=== PATIENT | female | born 1995 | race Caucasian/White ===

== ENCOUNTER → 2021-08-27 | Outpatient (CLI) | payer OTHER ==
[~2021-08-27] MED LIST: CRYSELLE1 TAB; SYNTHROID75 MCG; ZITHROMAX500 MG; ZYRTEC10 M3
== END | disposition home or self-care (01) ==
LOC: MRI 11:34
PROVIDERS: ATTEND Orthopaedic Surgery
DX: M25.462 Effusion, left knee (principal); M25.562 Pain in left knee; M25.561 Pain in right knee; M24.811 Other specific joint derangements of right shoulder, not elsewhere classified; M24.812 Other specific joint derangements of left shoulder, not elsewhere classified
CPT/HCPCS: 73721

== ENCOUNTER 2022-06-20 17:47 | Emergency (ER) | payer OTHER ==
[~2022-06-20] VITALS: Ht 160 cm; Wt 125.2 kg
[2022-06-20] MEDS ORDERED: PANADOL (19:31)
== END 2022-06-20 22:39 | disposition home or self-care (01) ==
LOC: ER 17:47
DX: S69.91XA Unspecified injury of right wrist, hand and finger(s), initial encounter (principal); W22.8XXA Striking against or struck by other objects, initial encounter; Y93.9 Activity, unspecified; Y92.219 Unspecified school as the place of occurrence of the external cause

== ENCOUNTER 2024-12-19 12:11 | Outpatient (CLI) | payer OTHER ==
[~2024-12-19 12:11] MED LIST changes: +PANADOL
== END 2024-12-19 12:22 | disposition home or self-care (01) ==
LOC: MRI 12:11
PROVIDERS: ATTEND Orthopaedic Surgery
DX: M25.562 Pain in left knee (principal)
CPT/HCPCS: 73721